=== PATIENT | female | born 1990 ===

== ENCOUNTER 2018-04-18 14:36 | Emergency (ER) | payer BC ==
[2018-04-18 14:41] VITALS: BMI 30.2
[2018-04-18 14:52] VITALS: BP 133/86; PULSE 84; RESP 16; TEMP 97.7; O2SAT 100
--- NOTE | 2018-04-18 15:05 | C.PDOC ---
History Of Present Illness 27 y/o female comes in complaining of lower back pain for the past year and has been worsening for the past 3 weeks. Patient states back pain would occasionally radiate to left buttock/posterior thigh. Denies any trauma. States she tried motrin and tylenol but no relief. Patient has no PMD and did not have similar symptoms from before. LBP X 1 YR, WORSE X 3 WEEKS. LOWER BACK OCC RADIATION L BUTTOCK/POST THIGH. NO TRAUMA. NO RELIEF W MOTRIN, TYLENOL. PT NO PMD, NO PRIOR MD EVAL FOR SAME EXAM NAD BACK AROM WO DIFF. NONTEND. NO SPASM NEURO INTACT MDM ADVISED NEED FOR PMD, EVAL FOR POSSIBLE OUTPT MRI. Time Seen by Provider: 04/18/18 14:53 Chief Complaint (Nursing): Back Pain History Per: Patient History/Exam Limitations: no limitations Onset/Duration Of Symptoms: Days Current Symptoms Are (Timing): Still Present Past Medical History Reviewed: Historical Data, Nursing Documentation, Vital Signs Vital Signs: Last Vital Signs Temp 97.7 F 04/18/18 14:43 Pulse 84 04/18/18 14:43 Resp 16 04/18/18 14:43 BP 133/86 04/18/18 14:43 Pulse Ox 100 04/18/18 14:43 Family History: States: No Known Family Hx - Social History Hx Alcohol Use: No Hx Substance Use: No - Immunization History Hx Tetanus Toxoid Vaccination: No Hx Influenza Vaccination: No Hx Pneumococcal Vaccination: No Review Of Systems Except As Marked, All Systems Reviewed And Found Negative. Constitutional: Negative for: Fever Cardiovascular: Negative for: Chest Pain Respiratory: Negative for: Shortness of Breath Musculoskeletal: Positive for: Back Pain (lower back pain that radiates to left buttock/posterior thigh). Negative for: Neck Pain Physical Exam - Physical Exam Appears: Non-toxic, No Acute Distress Skin: Warm, Dry Head: Atraumatic, Normacephalic Eye(s): bilateral: Normal Inspection Oral Mucosa: Moist Neck: Supple Chest: Symmetrical Cardiovascular: Rhythm Regular, No Murmur Respiratory: Normal Breath Sounds, No Rales, No Rhonchi, No Wheezing Back: No CVA Tenderness, No Muscle Spasm, No Paraspinal Tenderness, Other (AROM without difficulty) Extremity: Bilateral: Normal Color And Temperature Neurological/Psych: Oriented x3, Normal Speech, Normal Motor, Normal Sensation ED Course And Treatment O2 Sat by Pulse Oximetry: 100 (RA) Pulse Ox Interpretation: Normal Progress Note: Neurontin and Ultram PO was given to patient. Progress - Re-Evaluation Re-evaluation Note: 04/18/18 15:05 NO PRIOR RECORD [facility] Medical Decision Making Medical Decision Making: ADVISED NEED FOR PMD, EVAL FOR POSSIBLE OUTPT MRI. Disposition Counseled Patient/Family Regarding: Diagnosis, Need For Followup, Rx Given - Disposition Referrals: [facility] [Outside] [facility] [Outside] Disposition: HOME/ ROUTINE Disposition Time: 15:19 Condition: IMPROVED Prescriptions: Gabapentin [Neurontin] 300 mg PO TID #30 cap Tramadol HCl [Ultram] 50 mg PO QID #20 tab Instructions: Sciatica (DC) Forms: [facility] (Serbian), Work Excuse - Clinical Impression Clinical Impression: Sciatica, Chronic back pain - Scribe Statement The provider has reviewed the documentation as recorded by the Elmira Gould Provider Attestation: All medical record entries made by the Elmira were at my direction and personally dictated by me. I have reviewed the chart and agree that the record accurately reflects my personal performance of the history, physical exam, medical decision making, and the department course for this patient. I have also personally directed, reviewed, and agree with the discharge instructions and disposition.
== END 2018-04-18 15:32 | disposition home or self-care (01) ==
LOC: C.ER 14:36
DX: M54.30 Sciatica, unspecified side (principal); G89.29 Other chronic pain; M54.5 Low back pain